=== PATIENT | male | born 1950 ===

== ENCOUNTER 2016-12-23 07:41 | Day surgery (SDC) | payer MEDICARE, OTHER ==
[2016-12-20 11:19] VITALS: BMI 29.8
[2016-12-23] MEDS ORDERED: Sodium Chloride 0.9% 1,000 ML IV SCH (09:00)
[2016-12-23] MEDS ORDERED: Propofol 10 mg/ml Inj (20 ML) ONE ×4 (09:57→11:15)
[2016-12-23 12:16] VITALS: O2SAT 99
[2016-12-23 12:56] VITALS: BP 126/75; PULSE 61; RESP 16; TEMP 97.5
== END 2016-12-23 14:08 | disposition home or self-care (01) ==
LOC: ENDO 07:41
PROVIDERS: ATTEND Internal Medicine Gastroenterology
DX: Z12.11 Encounter for screening for malignant neoplasm of colon (principal); Z80.0 Family history of malignant neoplasm of digestive organs; D12.2 Benign neoplasm of ascending colon; D12.0 Benign neoplasm of cecum; D12.4 Benign neoplasm of descending colon; D12.5 Benign neoplasm of sigmoid colon; K62.1 Rectal polyp; K57.30 Diverticulosis of large intestine without perforation or abscess without bleeding; K64.8 Other hemorrhoids; K56.2 Volvulus; E11.9 Type 2 diabetes mellitus without complications; E78.5 Hyperlipidemia, unspecified
CPT/HCPCS: 45380; 45381; 45385; 82948; 88305; J2001; J2704; J7040 ×2